=== PATIENT | male | born 1930 | race Caucasian/White ===

== ENCOUNTER 2017-09-05 07:31 | Day surgery (SDC) | payer OTHER ==
[2017-09-05] MEDS ORDERED: TIMOLOL 0.5% 5 ML OPH (07:33)
[2017-09-05] MEDS ORDERED: SODIUM BICARBONATE (IV ADD) 50 ML (07:33)
[2017-09-05] MEDS ORDERED: EPINEPHrine 1 MG INJ (07:41)
[2017-09-05] MEDS ORDERED: LIDOCAINE 1% (MPF) 10 ML INJ (07:41)
[2017-09-05] MEDS ORDERED: LIDOCAINE 2% (SDV) 5 ML INJ ×2 (07:41→09:19)
[2017-09-05] MEDS ORDERED: BUPIVACAINE 0.75% (MPF) 10 ML INJ (07:41)
[2017-09-05] MEDS: LIDOCAINE 1% (MPF) 10 ML INJ INJ (08:17)
[2017-09-05] MEDS: NEPAFENAC 0.1% 3 ML OPH OPER (08:27)
[2017-09-05] MEDS: PHENYLephrine 10% 5 ML OPH OPER (08:27)
[2017-09-05] MEDS: CYCLOPENTOLATE 2% 2 ML OPH OPER (08:27)
[2017-09-05] MEDS: MOXIFLOXACIN 0.5% 3 ML OPH OPER (08:27)
[2017-09-05] MEDS ORDERED: PROPOFOL 20 ML (09:19)
[2017-09-05] MEDS ORDERED: FENTAnyl 50 MCG/ML VIAL (09:33)
[2017-09-05] MEDS: TIMOLOL 0.5% 5 ML OPH LEFT EYE (09:50)
[2017-09-05] MEDS ORDERED: ONDANSETRON 4 MG INJ (10:03)
[2017-09-05] MEDS: CARBACHOL 0.01% 1.5 ML OPH INJ IO (10:11)
[2017-09-05] MEDS ORDERED: CARBACHOL 0.01% 1.5 ML OPH INJ (10:11)
[2017-09-05] MEDS ORDERED: FENTAnyl 50 MCG/ML VIAL IV (11:00)
[2017-09-05] MEDS ORDERED: ONDANSETRON 4 MG INJ IV (11:00)
[2017-09-05] MEDS: ACETAMINOPHEN 325 MG TAB PO (12:15)
== END 2017-09-05 12:43 | disposition home or self-care (01) ==
LOC: SDS 07:31
DX: H25.12 Age-related nuclear cataract, left eye (principal); I10 Essential (primary) hypertension
CPT/HCPCS: 66984